=== PATIENT | male | born 1995 | race Caucasian/White ===

== ENCOUNTER 2019-02-22 17:02 | Emergency (ER) | payer BC, OTHER ==
[~2019-02-22] VITALS: Ht 175.3 cm; Wt 86.2 kg
[2019-02-22] MEDS ORDERED: LISINOPRIL20 MG ORAL (17:08)
[2019-02-22 17:15] VITALS: BP 134/81
--- NOTE | 2019-02-22 17:15 | NUR ---
ED Nurse Note: pt walked in to ED due to pain on right calf for last 3 days. denies any activity. no sob. no recent surgery done. unable to weight on leg due to pain. AAO x4. respirations even and non-labored noted. will wait for the further order.
--- NOTE | 2019-02-22 17:37 | Emergency Room Report ---
History of Present Illness General Chief Complaint: Pain Source: Patient Present Illness HPI 23-year-old male presents to the emergency department complaining of 8 out of 10 severity localized posterior right calf pain x2 days. Patient reports yesterday it began feeling slightly better however he states this morning his symptoms progressed. Patient states initially his pain was 6 out of 10 severity. Patient denies taking any medications for symptoms. Patient denies recent travel, history of immune compromise, recent immobilization or surgeries. He denies recent strenuous activities. Denies trauma or fall. Patient reports pain with weightbearing in addition to pain with dorsiflexion of the right foot. Allergies: Coded Allergies: No Known Allergies (Unverified , 02/22/19) Patient History Past Medical History: see triage record Past Surgical History: none Pertinent Family History: none Reviewed Nursing Documentation: PMH: Agreed; PSxH: Agreed Nursing Documentation-PMH Hx Hypertension: Yes Review of Systems All Other Systems: negative except mentioned in HPI Physical Exam Vital Signs Date Time Temp Pulse Resp B/P (MAP) Pulse Ox O2 Delivery O2 Flow Rate FiO2 02/22/19 17:06 98.4 100 18 134/81 (98) 96 Room Air Sp02 EP Interpretation: reviewed, normal General Appearance: no apparent distress, alert, GCS 15, non-toxic Head: normocephalic, atraumatic Eyes: bilateral eye normal inspection, bilateral eye PERRL ENT: hearing grossly normal, normal voice Neck: full range of motion Respiratory: lungs clear, normal breath sounds, speaking full sentences Cardiovascular #1: regular rate, rhythm, normal capillary refill Cardiovascular #2: 2+ dorsalis pedis (R), 2+ dorsalis pedis (L) Musculoskeletal: gait/station normal, normal range of motion - right LE with pain especially with dorsiflexion. , calf tenderness - right- localized to the proximal portion. Neurologic: alert, oriented x3, responsive, motor strength/tone normal, sensory intact, speech normal, grossly normal Psychiatric: judgement/insight normal Skin: no rash Medical Decision Making PA Attestation Dr. Murphy is my supervising Physician whom patient management has been discussed with. Diagnostic Impression: Primary Impression: Pain of left calf ER Course 23-year-old male presents to the emergency department complaining of 8 out of 10 severity localized posterior right calf pain x2 days. Patient reports yesterday it began feeling slightly better however he states this morning his symptoms progressed. Patient states initially his pain was 6 out of 10 severity. Patient denies taking any medications for symptoms. Patient denies recent travel, history of immune compromise, recent immobilization or surgeries. He denies recent strenuous activities. Denies trauma or fall. Patient reports pain with weightbearing in addition to pain with dorsiflexion of the right foot. Ddx considered but are not limited to Fracture, dislocation, contusion, Sprain/ Strain/Spasm, Cellulitis, DVT just to name a few. Vital signs: are WNL, pt. is afebrile H&PE are most consistent with musculoskeletal injury will perform imaging to r/ o fractures/dislocations. ORDERS: - X-ray's not warranted given no trauma, and no localized bony ttp. -Venous Duplex US of the Left LE to r/o DVT ED INTERVENTIONS: - Motrin PO DISCHARGE: At this time pt. is stable for d/c to home. Will provide printed patient care instructions, and any necessary prescriptions. Care plan and follow up instructions have been discussed with the patient prior to discharge. CT/MRI/US Diagnostic Results CT/MRI/US Diagnostic Results : Imaging Test Ordered: Venous Duplex US of the Left LE Impression Negative for DVT Last Vital Signs Date Time Temp Pulse Resp B/P (MAP) Pulse Ox O2 Delivery O2 Flow Rate FiO2 02/22/19 17:15 98.4 100 18 134/81 96 Room Air Disposition: HOME, SELF-CARE Condition: Stable Scripts Diclofenac Sodium (VOLTAREN) 100 Gm Gel..gram. 1 APPLIC TP Q6HR, #100 GM Prov: Abby Bird 02/22/19 Acetaminophen* (TYLENOL EXTRA STRENGTH*) 500 Mg Tablet 500 MG ORAL Q6H, #30 TAB 0 Refills Prov: Abby Bird 02/22/19 Patient Instructions: Muscle Pain, Adult Additional Instructions: Take medications as directed. Follow up with a Primary Care Provider in 3-5 days, even if your symptoms have resolved. --Please review list of primary care clinics, if you do not already have a primary care provider Return sooner to ED if new symptoms occur, or current symptoms become worse. - Please note that this Emergency Department Report was dictated using [employer] test analyst technology software, occasionally this can lead to erroneous entry secondary to interpretation by the dictation equipment. Abby Bird Feb 22, 2019 17:37
[2019-02-22] MEDS ORDERED: TYLENOL EXTRA500 MG ORAL (18:40)
[2019-02-22] MEDS ORDERED: VOLTAREN100 G1 TP (18:40)
[2019-02-22 18:55] VITALS: BP 127/71
--- NOTE | 2019-02-22 18:56 | NUR ---
ER DISCHARGE NOTE: Patient is cleared to be discharged per ERMD, pt is aox4, on room air, with stable vital signs. pt was given dc and prescription instructions, pt was able to verbalize understanding, pt id band removed without complications. pt is able to ambulate with steady gait. pt took all belongings.
--- NOTE | 2019-02-25 15:24 | Diagnostic Imaging Report ---
Indication: Right lower extremity pain and swelling. Technique: Duplex Doppler imaging performed from the right common femoral vein to the popliteal vein. FINDINGS: Normal compressibility demonstrated from the common femoral vein to the popliteal vein. Respiratory phasicity and good augmentation demonstrated on waveform analysis. There is no evidence of thrombosis. IMPRESSION: No evidence of deep venous thrombosis within the right lower extremity.
== END 2019-02-22 18:56 | disposition home or self-care (01) ==
LOC: EMR 17:50
DX: M79.661 Pain in right lower leg (principal); R60.0 Localized edema
CPT/HCPCS: 93971; 99284